=== PATIENT | female | born 1990 | race Caucasian/White ===

== ENCOUNTER 2023-05-17 10:55 | Emergency (ER) | payer OTHER ==
[~2023-05-17] VITALS: Ht 157.5 cm; Wt 54.5 kg
[~2023-05-17 10:55] MED LIST: NOCURR
[2023-05-17 11:22] VITALS: TEMP 98.2
[2023-05-17 11:35] LABS: COVID AG,FIA SOURCE NASAL SWAB
[2023-05-17 12:04] LABS: SARS-COV2 (COVID) ANTIGEN,FIA Negative (Negative)
[2023-05-17 12:11] LABS: INFLUENZA TYPE A NEGATIVE FOR TYPE A (NEGATIVE); INFLUENZA TYPE B NEGATIVE FOR TYPE B (NEGATIVE)
[2023-05-17 13:15] LABS: BASOPHILS % (AUTO) 0.9 % (0.0-2.0); EOSINOPHILS % (AUTO) 0.9 % (1.0-6.0); HEMATOCRIT 37.7 % (36-46); HEMOGLOBIN 12.3 g/dL (12.0-16.0); LYMPHOCYTES # (AUTO) 1.2 K/uL (1.0-4.8); LYMPHOCYTES % (AUTO) 26.7 % (22.0-44.0); MEAN CORPUSCULAR HEMOGLOBIN 27.6 pg (26.0-34.0); MEAN CORPUSCULAR HGB CONC 32.6 G/dL (31.0-37.0); MEAN CORPUSCULAR VOLUME 85 fL (80-100); MONOCYTES # (AUTO) 0.3 K/uL (0.1-1.0); MONOCYTES % (AUTO) 5.5 % (2.0-9.0); NEUTROPHILS # (AUTO) 3.1 K/uL (1.8-7.7); PLATELET COUNT (AUTO) 163 K/uL (150-450); RED BLOOD CELL COUNT(AUTO) 4.45 MIL/uL (4.00-5.20); RED CELL DISTRIBUTION WIDTH 14.6 % (11.5-14.5); WHITE BLOOD COUNT (AUTO) 4.6 K/uL (4.5-11.0)
[2023-05-17 13:21] LABS: ANION GAP 10 mmol/L (8-16); CALCIUM, TOTAL 9.2 mg/dL (8.8-10.5); CARBON DIOXIDE 27 mmol/L (22-29); CHLORIDE 104 mmol/L (98-107); CREATININE 0.65 mg/dL (0.60-1.30); GLOMERULAR FILTR. RATE CALC > 60 mL/min (>60); GLUCOSE,RANDOM 82 mg/dL (70-110); POTASSIUM 3.9 mmol/L (3.5-5.1); SODIUM SERUM 141 mmol/L (136-145); UREA NITROGEN, BLOOD 15 mg/dL (7-18)
[2023-05-17 13:32] LABS: ALANINE AMINOTRANSFERASE 11 U/L (12-78); ALBUMIN 4.1 g/dL (3.4-5.0); ALKALINE PHOSPHATASE 74 U/L (46-116); ASPARTATE AMINOTRANSFERASE 21 U/L (15-37); BILIRUBIN,TOTAL 0.6 mg/dL (0.1-1.0); HCG,QUANTITATIVE < 1 mIU/mL (0-6); LIPASE 35 U/L (16-77); TOTAL PROTEIN, SERUM 7.6 g/dL (6.4-8.2)
[2023-05-17] MEDS: ONDANSETRON HCL 4 MG/2 ML VIAL IVP ONE (14:11)
[2023-05-17] MEDS: SODIUM CHLORIDE 0.9% 1,000 ML IV ONE (14:11)
[2023-05-17] MEDS: KETOROLAC TROMETHAMINE 30 MG/ML VIAL IVP ONE (14:12)
[2023-05-17 14:40] VITALS: BP 113/61; PULSE 71; RESP 16
== END 2023-05-17 15:37 | disposition home or self-care (01) ==
LOC: EMS 10:55
DX: B34.9 Viral infection, unspecified (principal); Z20.822 Contact with and (suspected) exposure to COVID-19
CPT/HCPCS: 99285; 96374; 76705; 96361; 96375; 87426; 80053; 83690; 84702; 85025; 87804; J1885; J2405; J7030; 36415-L1; 36415-TC

== ENCOUNTER 2024-05-11 12:45 | Emergency (ER) | payer OTHER ==
[~2024-05-11] VITALS: Ht 160 cm; Wt 52.3 kg
[2024-05-11] MEDS: LIDOCAINE 5% TRANSDERMAL PATCH TD ONE (13:09)
[2024-05-11] MEDS: KETOROLAC TROMETHAMINE 30 MG/ML VIAL IM ONE (13:09)
[2024-05-11 13:54] VITALS: BP 109/61; PULSE 70; RESP 18; TEMP 98.2; O2SAT 100
[2024-05-11] MEDS ORDERED: IBUP-1492 PO (14:08)
[2024-05-11] MEDS ORDERED: METH-659 PO (14:08)
== END 2024-05-11 14:20 | disposition home or self-care (01) ==
LOC: EMS 12:46
DX: S13.4XXA Sprain of ligaments of cervical spine, initial encounter (principal); Z98.51 Tubal ligation status; V43.52XA Car driver injured in collision with other type car in traffic accident, initial encounter; Y93.89 Activity, other specified; Y92.410 Unspecified street and highway as the place of occurrence of the external cause; Y99.8 Other external cause status
CPT/HCPCS: 99283; 96372; J1885

== ENCOUNTER 2024-06-08 20:34 | Emergency (ER) | payer OTHER ==
[~2024-06-08] VITALS: Ht 152.4 cm; Wt 47.7 kg
[~2024-06-08 20:34] MED LIST changes: +IBUP-1492 PO; +METH-659 PO
[2024-06-08 21:01] VITALS: BP 115/71; PULSE 72; RESP 18; TEMP 98.2; O2SAT 100
== END 2024-06-08 22:31 | disposition left against medical advice (07) ==
LOC: EMS 20:45
DX: M54.2 Cervicalgia (principal); K08.89 Other specified disorders of teeth and supporting structures; Z53.21 Procedure and treatment not carried out due to patient leaving prior to being seen by health care provider